=== PATIENT | male | born 1940 | race Caucasian/White ===

== ENCOUNTER 2017-01-10 08:30 | Outpatient (CLI) | payer MEDICARE, BC ==
[2017-01-10 10:26] LABS: Red Blood Cell (RBC) Count 5.15 mill/uL (4.70-6.10); White Blood Cell (WBC) Count 5.5 thou/uL (4.8-10.8)
[2017-01-10 10:28] LABS: PTT 27.9 SEC (22.9-36.1); Prothrombin Time 12.8 SEC (12.0-14.7)
[2017-01-10 11:08] LABS: Anion Gap 14 mmol/L (10-20); BUN (Urea Nitrogen) 9 mg/dL (8.4-25.7); Calc. Creatinine Clearance 0 mL/min (70-130); Calcium 9.8 mg/dL (7.8-10.44); Carbon Dioxide 28 mmol/L (23-31); Chloride 100 mmol/L (98-107); Estimated GFR-MDRD 81
== END 2017-01-10 08:31 | disposition home or self-care (01) ==
LOC: LABBT 08:30
PROVIDERS: ATTEND Neurological Surgery
DX: Z01.812 Encounter for preprocedural laboratory examination (principal); M43.16 Spondylolisthesis, lumbar region; M48.061 Spinal stenosis, lumbar region without neurogenic claudication
CPT/HCPCS: 80048; 85027; 85610; 85730; 93005; 93010

== ENCOUNTER 2017-03-17 09:10 | Outpatient (CLI) | payer MEDICARE, BC ==
--- NOTE | 2017-03-17 10:00 | RAD ---
THREE VIEW LUMBAR SPINE: COMPARISON: 11/04/16. INDICATION: Lumbar radiculopathy. FINDINGS: Reference is made to 11/04/16. There is posterior metallic fusion of L3 and L4. Subtle areas of surrounding lucency are present whi ch may be artifactual. There is grade I spondylolisthesis at L3-4. Intradiskal space device of L2 l evel present. There is multilevel degenerative change. Incidental note of atherosclerosis. IMPRESSION: Postoperative fixation of L3-4. There is a grade I spondylolisthesis of L3-4 remaining, measuring ap proximately 5 mm. POS: [facility]
== END 2017-03-17 09:11 | disposition home or self-care (01) ==
LOC: TBSIIMAG 09:10
PROVIDERS: ATTEND Neurological Surgery
DX: M54.16 Radiculopathy, lumbar region (principal); M43.16 Spondylolisthesis, lumbar region
CPT/HCPCS: 72100

== ENCOUNTER 2019-01-12 09:26 | Emergency (ER) | payer MEDICARE, BC ==
[2019-01-12] MEDS ORDERED: Adacel (T-DAP) 0.5 ML SYRINGE ONE (09:34)
[2019-01-12] MEDS ORDERED: Bupivacaine 0.5% 10 ML VIAL ONE (09:34)
[2019-01-12] MEDS ORDERED: Bacitracin 1 PK ONE (09:34)
== END 2019-01-12 10:04 | disposition home or self-care (01) ==
LOC: SCSER 09:26
DX: S61.213A Laceration without foreign body of left middle finger without damage to nail, initial encounter (principal); I10 Essential (primary) hypertension; E78.5 Hyperlipidemia, unspecified; Z79.899 Other long term (current) drug therapy; W26.0XXA Contact with knife, initial encounter
CPT/HCPCS: 12001; 90471; 90715; J3490

== ENCOUNTER 2024-02-01 08:22 | Outpatient (CLI) | payer MEDICARE, BC | END 2024-02-01 08:23 | disposition home or self-care (01) | LOC: NM 08:22 | PROVIDERS: ATTEND Internal Medicine | DX: G20.C Parkinsonism, unspecified (principal); R25.1 Tremor, unspecified | CPT/HCPCS: 78803; A9584 ×2 ==

== ENCOUNTER 2025-01-24 08:23 | Outpatient (CLI) | payer MEDICARE, BC | END 2025-01-24 08:24 | disposition home or self-care (01) | LOC: NM 08:23 | PROVIDERS: ATTEND Internal Medicine | DX: G31.84 Mild cognitive impairment of uncertain or unknown etiology (principal) | CPT/HCPCS: 70450; 78803; A9584 ×2 ==